=== PATIENT | male | born 1960 | race Caucasian/White ===

== ENCOUNTER 2018-10-08 09:02 | Day surgery (SDC) | payer OTHER ==
[~2018-10-08] VITALS: Ht 175.3 cm; Wt 78.3 kg
[~2018-10-08 09:02] MED LIST: OFLO5DRO46 LEFT EYE
[2018-10-08 09:46] VITALS: Ht 175.3 cm; Wt 78.3 kg
[2018-10-08] MEDS ORDERED: IBUPROFEN (09:50)
[2018-10-08] MEDS ORDERED: PROPOFOL 60 ML ONE (09:53)
[2018-10-08] MEDS ORDERED: LIDOCAINE 2% (SDV) 5 ML INJ ONE (09:53)
--- NOTE | 2018-10-08 10:07 | PREAC ---
Date/Time of Note Date/Time of Note DATE: 10/08/18 TIME: 10:06 Anesthesia Eval and Record Evaluation Time Pre-Procedure Interview DATE: 10/08/18 TIME: 10:06 Age 58 Sex male NPO: 8 hrs Preoperative diagnosis abd pain/screening Planned procedure EGD,colonscopy Past Medical History Past Medical History: Includes Cardio: HTN Pulm: Smoking Hx, COPD Musculoskeletal: Osteoarthritis Surgery & Anesthesia Issues No known issue Meds Anticoagulation: No Beta Delano within 24 hr: No Reason Beta Delano not given: Pt. not on B-Delano Reported Medications [Ibuprofen] No Conflict Check 10/08/18 Discontinued Scripts Ofloxacin* (Ocuflox*) 0.3%-5 Ml Ophth Drops, 1 DROP LEFT EYE QID, #1 BOTTLE Prov:MELANI HILL PA-C 02/16/16 Meds reviewed: Yes Allergies Coded Allergies: No Known Allergy (Unverified , 10/08/18) Allergies Reviewed: Yes Labs/Studies Labs Reviewed: Reviewed by anesthesiologist test: N/A Studies: ECG, CXR Pre-procedure Exam Airway: Adequate mouth opening, Adequate thyromental dist Mallampati: Mallampati III Teeth: Normal Lung: Normal Heart: Normal ASA Physical Status ASA physical status: 3 Emergency: None Planned Anesthetic General/MAC: MAC Planned Pain Management Parenteral pain med Pre-operative Attestations Prior to commencing anesthesia and surgery, the patient was re-evaluated, there was verification of: *The patient's identity *The results of appropriate recent lab work and preoperative vital signs *The above evaluation not changing prior to induction *Anesthetic plan, risk benefits, alternative and complications discussed with patient/family; questions answered; patient/family understands, accepts and wishes to proceed. DALTON LOPEZ MD Oct 08, 2018 10:07
[2018-10-08 10:22] VITALS: BP 122/76; PULSE 76; RESP 15
[2018-10-08] MEDS ORDERED: LEVALBUTEROL (NEB) 1.25 MG/0.5 ML AMP HHN PRN (10:30)
[2018-10-08] MEDS ORDERED: IPRATROPIUM (NEB) 0.5 MG/2.5 ML AMP HHN PRN (10:30)
[2018-10-08 11:16] VITALS: BP 109/70; PULSE 70; RESP 16
--- NOTE | 2018-10-08 16:12 | PAC ---
Date/Time of Note Date/Time of Note DATE: 10/08/18 TIME: 16:12 Post-Anesthesia Notes Post-Anesthesia Note Last documented vital signs Vital Signs Date Temp Pulse Resp B/P (MAP) Pulse Ox O2 O2 Flow FiO2 Time Delivery Rate 10/08/18 70 16 109/70 98 Room Air 11:16 (83) 10/08/18 98.4 10:22 Activity: WNL Respiratory function: WNL Cardiovascular function: WNL Mental status: Baseline Pain reasonably controlled: Yes Hydration appropriate: Yes Nausea/Vomiting absent: Yes DALTON LOPEZ MD Oct 08, 2018 16:12
== END 2018-10-08 12:03 | disposition home or self-care (01) ==
LOC: GIL 09:02
PROVIDERS: ATTEND Internal Medicine Gastroenterology
DX: Z12.11 Encounter for screening for malignant neoplasm of colon (principal); K64.8 Other hemorrhoids; D12.5 Benign neoplasm of sigmoid colon; K29.50 Unspecified chronic gastritis without bleeding; I10 Essential (primary) hypertension; J44.9 Chronic obstructive pulmonary disease, unspecified; Z87.891 Personal history of nicotine dependence
CPT/HCPCS: 43239; 45380; 88305; 88312; Z7610